=== PATIENT | female | born 1975 | race Caucasian/White ===

== ENCOUNTER 2022-08-28 21:00 | Emergency (ER) | payer SELFPAY ==
[2022-08-28] MEDS ORDERED: Sodium Chloride 0.9% 1,000 ML IV STA (21:39)
[2022-08-28] MEDS ORDERED: Sodium Chloride 0.9% 10 ML Syringe FLUSH PRN (21:39)
[2022-08-28] MEDS ORDERED: HYDROmorphone 1 MG/ML Syringe IVPUSH ONE (21:40)
[2022-08-28] MEDS ORDERED: Promethazine 25 MG/ML SDV IM ONE (21:40)
[2022-08-28 22:57] LABS: ESTIMATED GFR 91 mL/min (>60)
[2022-08-28] MEDS ORDERED: Lactated Ringers 1,000 ML IV SCH (23:45)
[2022-08-28] MEDS ORDERED: Promethazine 25 MG/ML SDV IM PRN (23:54)
[2022-08-29] MEDS: HYDROmorphone 0.5 MG/0.5 ML Syringe IVPUSH PRN ×3 (00:17→07:19)
[2022-08-29] MEDS ORDERED: Methadone 10 MG Tab PO ONE (06:45)
== END 2022-08-29 07:40 | disposition home or self-care (01) ==
LOC: JD.ED 21:00
DX: R11.2 Nausea with vomiting, unspecified (principal); D69.6 Thrombocytopenia, unspecified; F11.23 Opioid dependence with withdrawal; D72.829 Elevated white blood cell count, unspecified; F17.210 Nicotine dependence, cigarettes, uncomplicated; Z88.0 Allergy status to penicillin
CPT/HCPCS: 36415; 80053; 85025; 96361; 96372; 96374; 96376; 99283; 99284-25; A9270-GY; J1170; J2550; J3490; J7030; J7120